=== PATIENT | female | born 1995 | race Caucasian/White ===

== ENCOUNTER 2018-06-17 20:33 | Emergency (ER) | payer BC, OTHER ==
[~2018-06-17] VITALS: Ht 160 cm; Wt 99.8 kg
[2018-06-17] MEDS ORDERED: METFORMIN HCL500 MG PO (20:49)
[2018-06-17] MEDS ORDERED: PEPTO-BISMOL1 TAB PO (20:50)
[2018-06-17 20:56] LABS: URINE BILIRUBIN NEGATIVE (Negative); URINE BLOOD TRACE (Negative); URINE CLARITY CLEAR; URINE COLOR YELLOW; URINE GLUCOSE-RANDOM* NEGATIVE (Negative); URINE KETONES 1+ (Negative); URINE LEUKOCYTES NEGATIVE (Negative); URINE NITRITE NEGATIVE (Negative); URINE PROTEIN (DIPSTICK) NEGATIVE (Negative); URINE SPECIFIC GRAVITY 1.025 (1.005-1.035); URINE UROBILINOGEN 0.2 E.U./dl (0.2-1.0)
[2018-06-17 21:06] LABS: ABSOLUTE NEUTROPHILS 7.3 thou/uL (1.4-8.2); BASOPHILS 0.5 % (0.0-2.0); EOSINOPHILS 0.6 % (0.0-3.0); HEMATOCRIT 44.5 % (37.0-47.0); HEMOGLOBIN 15.2 gm/dL (12.0-15.0); LYMPHOCYTES 23.9 % (24.0-44.0); MCH 29.1 pg (26.0-34.0); MCHC 34.2 g/dL (28.0-37.0); MCV 85.1 fL (80.0-100.0); MONOCYTES 6.8 % (1.0-8.0); PLATELET COUNT 280 thou/uL (150-400); POLYS 68.2 % (36.0-66.0); RBC 5.22 mil/uL (4.20-5.00); RDW 13.9 % (10.5-14.5); WBC 10.6 thou/uL (4.0-11.0)
[2018-06-17 21:15] LABS: CALCIUM 9.2 mg/dL (8.5-10.1); CREATININE 0.7 mg/dL (0.6-1.0); POTASSIUM 4.1 mmol/L (3.5-5.1)
[2018-06-17 21:21] LABS: TOTAL BILIRUBIN 0.5 mg/dL (<0.1-1.0); TOTAL PROTEIN 8.2 g/dL (6.4-8.2)
[2018-06-17] MEDS ORDERED: ZOFRAN ODT4 MG PO (21:37)
[2018-06-17 21:48] VITALS: BP 123/72
== END 2018-06-17 21:48 | disposition home or self-care (01) ==
LOC: ER 20:33
PROVIDERS: Emergency Medicine
DX: R11.2 Nausea with vomiting, unspecified (principal)